=== PATIENT | male | born 1945 | race Caucasian/White ===

== ENCOUNTER 2019-03-14 15:23 | Emergency (ER) | payer OTHER ==
--- NOTE | 2019-03-14 16:02 | EDPHY ---
H & P Time Seen by Provider: 03/14/19 15:52 HPI/ROS: CHIEF COMPLAINT: Leg swelling, scrotal swelling HISTORY OF PRESENT ILLNESS: Patient is a 73-year-old male with no past medical history the presents emergency department with multiple complaints. Patient states that 10-14 days ago his leg started to swell bilaterally. They are symmetric. They are becoming more tense. A few days ago his scrotum began to swell. It is non painful. It is not tender to touch. He has had no fevers or chills. The patient has had an ongoing nonproductive cough. He feels mildly short of breath. He denies any PND or orthopnea. REVIEW OF SYSTEMS: 10 systems were reveiwed and are negative with the exception of the elements mentioned in the history of present illness. Past Medical/Surgical History: Denies Past surgical history: Noncontributory Social history: The patient smokes. 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 Smoking Status: Current every day smoker Physical Exam: Vitals noted GENERAL: Well-appearing, in no acute distress, alert. HEENT: Eyes normal to inspection, normal pharynx, no signs of dehydration. NECK: Normal, supple. RESPIRATORY: Clear to auscultation bilaterally, no rales, rhonchi or wheezing. CVS: Regular rate and rhythm, no rubs, murmurs, or gallops. ABDOMEN: Soft, nontender, nondistended, no organomegaly. BACK: Normal to inspection, no CVA tenderness. : Scrotal swelling. No erythema or warmth. No tenderness to palpation. SKIN: Normal color, no rash, warm, dry. No pallor. EXTREMITIES: Bilateral +2 pedal edema, no calf tenderness, no Homans sign or cords, no joint swelling. NEURO/PSYCH: Alert and oriented, normal mood and affect, normal motor sensory exam. Constitutional: Initial Vital Signs Temperature (C) 36.7 C 03/14/19 15:27 Heart Rate 97 03/14/19 15:27 Respiratory Rate 16 03/14/19 15:27 Blood Pressure 126/88 H 03/14/19 15:27 O2 Sat (%) 92 03/14/19 15:27 O2 Delivery Mode Room Air Allergies/Adverse Reactions: No Known Allergies Allergy (Unverified 03/14/19 15:27) Home Medications: Medication Instructions Recorded NK [No Known Home Meds] 03/14/19 Medical Decision Making - Diagnostics Imaging Results: Imaging Impressions Chest X-Ray 03/14/19 15:58 Impression: Acute early CHF. ED Course/Re-evaluation: In the emergency department I discussed possible etiologies with the patient. I answered all his questions. IV was placed. Laboratory studies were obtained. Chest x-ray and EKG EKG: Sinus rhythm at 86. Incomplete left bundle branch block. Prolonged QT. Troponin is 0.05. CBC and chemistry [place] [address]. On recheck the patient was stable. He was sitting in a chair in the room. He had no signs of respiratory distress. I discussed the results with the patient. I answered all his questions. I recommended admission for further evaluation. I discussed my concerns and risks to the patient. The patient had capacity to understand my instructions. He want to be discharged. He was adamant that he wanted to be discharged because he is take care of his . I offered options to help arrange care for his but he still wanted discharge. I believe he is capable of making this decision. I discussed case with Dr. Vito Ovalle to arrange close follow-up tomorrow. Patient was given warnings prior to leaving. He will return with worsening symptoms. Differential Diagnosis: My differential includes but is not limited to CHF, ascites, liver failure, electrolyte abnormality, sugar abnormality - Data Points Laboratory Results: Laboratory Results 03/14/19 15:55 03/14/19 15:55 03/14/19 03/14/19 03/14/19 16:09 15:55 15:55 WBC RBC Hgb Hct MCV MCH MCHC RDW Plt Count MPV Neut % (Auto) Lymph % (Auto) [place] % (Auto) Eos % (Auto) Baso % (Auto) Nucleat RBC Rel Count Absolute Neuts (auto) Absolute Lymphs (auto) Absolute Monos (auto) Absolute Eos (auto) Absolute Basos (auto) Absolute Nucleated RBC Immature Gran % Immature Gran # PT 13.9 SEC SEC (12.0-15.0) INR 1.11 (0.83-1.16) APTT 31.0 SEC SEC (23.0-38.0) Sodium 139 mEq/L mEq/L (135-145) Potassium 4.5 mEq/L mEq/L (3.5-5.2) Chloride 109 mEq/L mEq/L (97-110) Carbon Dioxide 21 mEq/l L mEq/l (22-31) Anion Gap 9 mEq/L mEq/L (6-14) BUN 23 mg/dL mg/dL (7-23) Creatinine 1.0 mg/dL mg/dL (0.7-1.3) Estimated GFR > 60 Glucose 89 mg/dL mg/dL (70-100) Calcium 9.4 mg/dL mg/dL (8.5-10.4) Total Bilirubin 1.4 mg/dL mg/dL (0.1-1.4) Conjugated Bilirubin 0.6 mg/dL H mg/dL (0.0-0.5) Unconjugated Bilirubin 0.8 mg/dL mg/dL (0.0-1.1) AST 27 IU/L IU/L (17-59) ALT 40 IU/L IU/L (21-72) Alkaline Phosphatase 133 IU/L H IU/L (38-126) POC Troponin I 0.05 ng/mL ng/mL (0.00-0.08) NT-Pro-B Natriuret Pep 28365 pg/mL H pg/mL (0-125) Total Protein 6.7 g/dL g/dL (6.3-8.2) Albumin 3.9 g/dL g/dL (3.5-5.0) Lipase 170 IU/L IU/L (23-300) 03/14/19 15:55 WBC 5.93 10^3/uL 10^3/uL (3.80-9.50) RBC 5.45 10^6/uL 10^6/uL (4.40-6.38) Hgb 16.1 g/dL g/dL (13.7-17.5) Hct 48.5 % % (40.0-51.0) MCV 89.0 fL fL (81.5-99.8) MCH 29.5 pg pg (27.9-34.1) MCHC 33.2 g/dL g/dL (32.4-36.7) RDW 17.9 % H % (11.5-15.2) Plt Count 182 10^3/uL 10^3/uL (150-400) MPV 10.9 fL fL (8.7-11.7) Neut % (Auto) 54.9 % % (39.3-74.2) Lymph % (Auto) 29.2 % % (15.0-45.0) [place] % (Auto) 11.6 % % (4.5-13.0) Eos % (Auto) 3.0 % % (0.6-7.6) Baso % (Auto) 1.0 % % (0.3-1.7) Nucleat RBC Rel Count 0.0 % % (0.0-0.2) Absolute Neuts (auto) 3.25 10^3/uL 10^3/uL (1.70-6.50) Absolute Lymphs (auto) 1.73 10^3/uL 10^3/uL (1.00-3.00) Absolute Monos (auto) 0.69 10^3/uL 10^3/uL (0.30-0.80) Absolute Eos (auto) 0.18 10^3/uL 10^3/uL (0.03-0.40) Absolute Basos (auto) 0.06 10^3/uL 10^3/uL (0.02-0.10) Absolute Nucleated RBC 0.00 10^3/uL 10^3/uL (0-0.01) Immature Gran % 0.3 % % (0.0-1.1) Immature Gran # 0.02 10^3/uL 10^3/uL (0.00-0.10) PT INR APTT Sodium Potassium Chloride Carbon Dioxide Anion Gap BUN Creatinine Estimated GFR Glucose Calcium Total Bilirubin Conjugated Bilirubin Unconjugated Bilirubin AST ALT Alkaline Phosphatase POC Troponin I NT-Pro-B Natriuret Pep Total Protein Albumin Lipase Point of Care Test Results: Chemistry 03/14/19 16:09 POC Troponin I 0.05 ng/mL ng/mL (0.00-0.08) Departure - Departure Disposition: Home, Routine, Self-Care Clinical Impression: Edema Qualifiers: Edema type: unspecified Qualified Code(s): R60.9 - Edema, unspecified Condition: Good
[2019-03-14 16:06] LABS: PLATELET COUNT 182 10^3/uL (150-400)
[2019-03-14 16:20] LABS: INR 1.11 (0.83-1.16); PROTIME(PATIENT) 13.9 SEC (12.0-15.0)
[2019-03-14] MEDS ORDERED: FUROSEMIDE 20 MG/2 ML VIAL IVP ONE (16:53)
[2019-03-14 17:27] VITALS: BP 128/75
--- NOTE | 2019-03-14 23:12 | CPEKG ---
Test Reason : OPEN Blood Pressure : / mmHG Vent. Rate : 086 BPM Atrial Rate : 086 BPM P-R Int : 183 ms QRS Dur : 107 ms QT Int : 412 ms P-R-T Axes : 068 -48 104 degrees QTc Int : 493 ms Sinus rhythm Multiple ventricular premature complexes Left atrial enlargement Incomplete left bundle branch block Borderline prolonged QT interval Confirmed by Charmaine Rizo ([id number]) on 03/14/2019 11:12:25 PM Referred By: Charmaine Rizo Confirmed By:Charmaine Rizo
== END 2019-03-14 17:35 | disposition home or self-care (01) ==
LOC: UNDOADMOB 16:52
DX: I50.9 Heart failure, unspecified (principal); R60.9 Edema, unspecified; F17.200 Nicotine dependence, unspecified, uncomplicated
CPT/HCPCS: 71046; 93005; 96374; 99285; J1940; 84484-ER

== ENCOUNTER → 2019-03-16 | Outpatient (CLI) | payer OTHER | LOC: BHFA 08:30 | PROVIDERS: ATTEND Internal Medicine Interventional Cardiology | DX: R06.02 Shortness of breath (principal); R60.9 Edema, unspecified ==

== ENCOUNTER 2019-03-17 06:13 | Day surgery (SDC) | payer OTHER ==
[2019-03-17] MEDS ORDERED: ASPIRIN EC 325 MG TAB PO ONE ×2 (06:18→06:41)
[2019-03-17] MEDS ORDERED: FAMOTIDINE 20 MG TAB PO ONE (06:18)
[2019-03-17] MEDS ORDERED: NS 1,000 ML IV ONE (06:18)
[2019-03-17] MEDS ORDERED: DIAZEPAM 5 MG TAB PO ONE (06:18)
[2019-03-17] MEDS ORDERED: diphenhydrAMINE 25 MG CAP PO ONE ×2 (06:18→06:40)
[2019-03-17] MEDS ORDERED: FAMOTIDINE 20 MG TAB ONE (06:40)
[2019-03-17] MEDS ORDERED: DIAZEPAM 5 MG TAB ONE (06:41)
[2019-03-17 07:00] LABS: PLATELET COUNT 175 10^3/uL (150-400)
[2019-03-17] MEDS ORDERED: LIDOCAINE 1% 300 MG/30 ML SDV ONE (07:06)
[2019-03-17 07:07] LABS: INR 1.08 (0.83-1.16); PROTIME(PATIENT) 13.6 SEC (12.0-15.0)
[2019-03-17] MEDS ORDERED: fentaNYL 100 MCG/2 ML INJ ONE (07:07)
[2019-03-17] MEDS ORDERED: IOPAMIDOL (ISOVUE-370) 150 ML BTL IV ONE (07:07)
[2019-03-17] MEDS ORDERED: MIDAZOLAM 2 MG/2 ML VIAL ONE ×2 (07:07)
--- NOTE | 2019-03-17 07:25 | PDPROPOC ---
Sedation Plan of Care Sedation Plan of Care: mental status noted, patient educated of risks, benefits , alternatives, patient can tolerate sedation ASA Classification: ASA 2 Planned drugs: fentanyl, midazolam Mallampati Score: Class 2 Mallampati Reference Image: Patient passed 3-3-2 rule?: Yes
--- NOTE | 2019-03-17 07:25 | PDHPUP ---
History & Physical Update H&P update statement: This history and physical update is based on an assessment of the patient which was completed after admission or registration (within 24 hours), but prior to the surgery/procedure. H&P update: H&P reviewed & patient examined, no change in patient's condition since H&P completed
[2019-03-17] MEDS ORDERED: ATROPINE SULFATE 1 MG/10 ML SYR IVP PRN (08:07)
[2019-03-17] MEDS ORDERED: OXYCODONE/APAP 5/325 TAB PO PRN (08:07)
[2019-03-17] MEDS ORDERED: HYDROCODONE/APAP 5/325 TAB PO PRN (08:07)
[2019-03-17] MEDS ORDERED: ONDANSETRON 4 MG/2 ML VIAL IVP PRN (08:07)
[2019-03-17] MEDS ORDERED: NITROGLYCERIN 0.4 MG BTL SL PRN (08:07)
--- NOTE | 2019-03-17 08:42 | CPEKG ---
Test Reason : OPEN Blood Pressure : / mmHG Vent. Rate : 096 BPM Atrial Rate : 095 BPM P-R Int : 167 ms QRS Dur : 117 ms QT Int : 390 ms P-R-T Axes : 073 -58 111 degrees QTc Int : 493 ms Sinus rhythm Multiple ventricular premature complexes Probable left atrial enlargement Incomplete left bundle branch block LVH with secondary repolarization abnormality Confirmed by Ally Durham ([id number]) on 03/17/2019 8:42:30 AM Referred By: Cristobal Menon Confirmed By:Ally Durham
--- NOTE | 2019-03-17 09:40 | PDCONSULT ---
Laundry Aide Note: Laundry Aide Note: INDICATION FOR CTS CONSULTATION: ischemic heart disease, valvular heart disease REQUESTING PHYSICIAN FOR CONSULTATION: Dr. Menon HISTORY OF PRESENT ILLNESS: This is a pleasant 73M who presented to the [facility] ED on 03/14/19 with bilateral symmetric LE edema for 10-14 days and scrotal swelling. A few days ago his scrotum began to swell. It is non painful. It is not tender to touch. He has had no fevers or chills. The patient has had an ongoing nonproductive cough. He feels mildly short of breath. He denies any PND or orthopnea. BNP was 94360. 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 TTE done confirmed heart failure with a severely dilated LV, EF 20%, mod MR, and severe TR. LHC today demonstrates severe 3-vessel CAD. No chest surgery. Prior to ED visit, he hasn't seen a PCP in at least a decade. No chest pain, palpitations, or history of afib. 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 PHYSICAL EXAMINATION: GENERAL APPEARANCE: NAD, in bed HEENT: NCAT, MMM, quarter-sized facial lesion, trachea midline, golfball mass on left face just inferior to earlobe RESPIRATORY: wheezes b/l, no rhonchi CARDIAC: s1s2, RRR, systolic murmur, 2+ edema b/l with discoloration ABDOMEN: soft, nontender SKIN: warm and dry NEURO: no gross defect, sensation intact PSYCH: answers questions appropriately, thoughts linear LABORATORY STUDIES: CBC, CMP, PT/INR reviewed in [facility] and unremarkable except recent BNP DIAGNOSTICS: RHC/LHC 4/18 - final results pending, prelim report w severe 3-vessel CAD; moderate pHTN TTE 03/16 - LV severely dilated, EF 20%, severe LAE severe TR, moderate MR, RVSP 48 CXR 03/14 - findings c/w acute CHF EKG 03/17 - SR, VPC, LAE, incomplete LBBB, LVH, QTc 493 CUS - yet to be ordered ASSESSMENT: Severe tricuspid valve regurgitation Moderate mitral valve regurgitation Severe 3-vessel coronary artery disease Severely depressed LVEF 20% Acute on chronic systolic/diastolic heart failure Moderate pHTN Tobacco use disorder Left face/neck mass of unknown significance Right face lesion, melanoma per patient PLAN: Dr. Almonte to evaluate patient with recommendations to follow.
--- NOTE | 2019-03-17 11:43 | CPIP ---
[f rep st] INVASIVE CARDIAC PROCEDURE DATE OF PROCEDURE: 03/17/2019 INDICATION FOR PROCEDURE: Heart failure. PROCEDURE: 1. Nonselective right groin sheathogram. 2. 7-Tongan sheath in right common femoral vein. 3. Bilateral coronary angiography. 4. Left heart catheterization. 5. Left ventriculogram. 6. Right heart catheterization using a Elbe-Constanza catheter. HISTORY: Briefly, this is a 73-year-old male with recent onset of worsening lower extremity edema, s hortness of breath. The patient had an echocardiogram as an outpatient, which showed severely reduce d global LV dysfunction. Given these findings, the patient was consented for right and left heart ca theterization. DESCRIPTION OF PROCEDURE: After informed consent, the patient was brought to [facility] where the right sharlene in was prepped and draped in sterile fashion. Using lidocaine, a short 6-Tongan sheath in the right c ommon femoral artery verified angiographically. 7-Tongan sheath in the right common femoral vein. Elbe-Constanza catheter was advanced. The wedge pressure was a mean of 35, A-wave 31, and V-wave 43. PA pressure was systolic 60, diastolic 25. RV pressure 62, diastolic 7, end of 18. RA pressure mean of 15, A-wave 19, V-wave 17. Cardiac output 6.0 with an index of 2.6. AO sat 88%. PA sat 68%. The S wan-Constanza catheter was removed. A JL4 catheter was advanced to the left coronary artery. Images of the left coronary artery revealed 20% in the mid left main. The left circumflex artery appeared to be a codominant, if not left domin ant circulation with a 20% proximal lesion. There was significant 80% disease in the distal left cir cumflex artery going into what appeared to be LPDA, with significant disease proximally __ distally. The LAD had 80% lesion proximally and a 67% disease in the midportion; however, t he distal vessel appeared to be widely patent. At the apical LAD, there was another area of approxim ately 50% disease. There was a diagonal artery with approximately 70% disease proximal. After these images were obtained, the JL4 catheter was removed. A JR4 catheter advanced to the right coronary artery. Images of the right coronary artery revealed what appeared to be a potential codominant circulation with an RPDA, which had diffuse 70% to 80% dis ease proximally. There was a marginal branch as well that had 70% to 80% disease proximally. After these images, a still frame cine was obtained of the abdomen, which appeared to show the calciu m shell of a large abdominal aortic aneurysm. The pigtail catheter was advanced to left ventricle. EDP is 24 mmHg. Left ventriculogram in the FOX projection showed an EF of approximately 20% with severe global LV hypokinesis. There was no pull-b ack gradient between the LV and aorta. The pigtail catheter was removed over a 0.035 wire. Right gr oin was closed with manual pressure. Patient tolerated the procedure well with no complications. IMPRESSION: 1. Severe triple-vessel coronary artery disease. 2. Severely reduced ejection fraction. 3. Moderately severe pulmonary hypertension. PLAN: I have already discussed the case with Dr. Almonte. Patient clearly needs to have a surgical ev aluation given his reduced EF, triple-vessel coronary artery disease, and elevated pulmonary pressure s. Patient does have social issues ongoing with taking care of his sick . We will try to arrang e either admission today or surgery as soon as possible given his current situation. /[id number]/MODL
== END 2019-03-17 14:17 | disposition home or self-care (01) ==
LOC: FCATH 06:13
PROVIDERS: ATTEND Internal Medicine Cardiovascular Disease
PROC: 4A023N8 Measurement of Cardiac Sampling and Pressure, Bilateral, Percutaneous Approach (ICD-10-PCS; principal; 2019-03-17)
PROC: B2111ZZ Fluoroscopy of Multiple Coronary Arteries using Low Osmolar Contrast (ICD-10-PCS; principal; 2019-03-17)
PROC: B2151ZZ Fluoroscopy of Left Heart using Low Osmolar Contrast (ICD-10-PCS; principal; 2019-03-17)
DX: I50.33 Acute on chronic diastolic (congestive) heart failure (principal); I34.0 Nonrheumatic mitral (valve) insufficiency; I36.1 Nonrheumatic tricuspid (valve) insufficiency; I25.10 Atherosclerotic heart disease of native coronary artery without angina pectoris; I27.20 Pulmonary hypertension, unspecified; F17.210 Nicotine dependence, cigarettes, uncomplicated; D03.39 Melanoma in situ of other parts of face
CPT/HCPCS: J1644; J2250; J3010; Q9967

== ENCOUNTER → 2019-03-21 | Outpatient (CLI) | payer OTHER ==
[~2019-03-21] MED LIST: IOPAMIDOL (ISOVUE 370) 100 ML BTL IV ONE
== END ==
LOC: CIMAGING 17:46
PROVIDERS: ATTEND Internal Medicine Cardiovascular Disease
DX: I71.4 Abdominal aortic aneurysm, without rupture (principal); J90 Pleural effusion, not elsewhere classified; I51.7 Cardiomegaly; N28.1 Cyst of kidney, acquired; I70.8 Atherosclerosis of other arteries; R18.8 Other ascites; K80.20 Calculus of gallbladder without cholecystitis without obstruction
CPT/HCPCS: 74174; Q9967

== ENCOUNTER 2019-03-31 06:09 | Inpatient (IN) | payer OTHER ==
[2019-03-31] MEDS ORDERED: ASPIRIN EC 325 MG TAB PO ONE (06:18)
[2019-03-31] MEDS ORDERED: NS 1,000 ML IV ONE (06:18)
[2019-03-31] MEDS ORDERED: diphenhydrAMINE 25 MG CAP PO ONE (06:18)
[2019-03-31] MEDS ORDERED: DIAZEPAM 5 MG TAB PO ONE (06:18)
[2019-03-31] MEDS ORDERED: FAMOTIDINE 20 MG TAB PO ONE (06:18)
[2019-03-31] MEDS ORDERED: CLOPIDOGREL BISULFATE 75 MG TAB ONE (06:26)
[2019-03-31] MEDS ORDERED: CLOPIDOGREL BISULFATE 75 MG TAB PO ONE (06:30)
[2019-03-31 07:04] LABS: INR 1.08 (0.83-1.16); PROTIME(PATIENT) 13.6 SEC (12.0-15.0)
[2019-03-31] MEDS ORDERED: MIDAZOLAM 2 MG/2 ML VIAL ONE ×2 (07:10→08:34)
[2019-03-31] MEDS ORDERED: LIDOCAINE 1% 300 MG/30 ML SDV ONE (07:10)
[2019-03-31] MEDS ORDERED: fentaNYL 100 MCG/2 ML INJ ONE ×2 (07:10→08:34)
[2019-03-31] MEDS ORDERED: IOPAMIDOL (ISOVUE-370) 150 ML BTL IV ONE ×2 (07:10→09:30)
[2019-03-31] MEDS ORDERED: BIVALIRUDIN 250 MG/5 ML VIAL IV ONE ×2 (07:12→08:34)
[2019-03-31] MEDS ORDERED: EPINEPHrine 1 MG/10 ML SYR IVP ONE (07:12)
[2019-03-31] MEDS ORDERED: ATROPINE SULFATE 1 MG/10 ML SYR ONE (07:12)
[2019-03-31 08:19] LABS: PLATELET COUNT 207 10^3/uL (150-400)
[2019-03-31] MEDS ORDERED: NITROGLYCERIN 1,500 MCG/15 ML VIAL MISC ONE (09:23)
[2019-03-31] MEDS ORDERED: methylPREDNISolone SOD SUCC 125 MG/2 ML VIAL ONE (09:55)
[2019-03-31] MEDS ORDERED: FAMOTIDINE 20 MG/NACL/50 ML BAG IV ONE (09:57)
[2019-03-31] MEDS ORDERED: FUROSEMIDE 40 MG/4 ML VIAL ONE (10:31)
[2019-03-31] MEDS ORDERED: OXYCODONE/APAP 5/325 TAB PO PRN (10:42)
[2019-03-31] MEDS ORDERED: ONDANSETRON 4 MG/2 ML VIAL IVP PRN (10:42)
[2019-03-31] MEDS ORDERED: HYDROCODONE/APAP 5/325 TAB PO PRN (10:42)
[2019-03-31] MEDS ORDERED: LORazepam 2 MG/ML INJ IVP PRN (10:42)
[2019-03-31] MEDS ORDERED: TEMAZEPAM 15 MG CAP PO PRN (10:42)
[2019-03-31] MEDS ORDERED: ATROPINE SULFATE 1 MG/10 ML SYR IVP PRN (10:42)
[2019-03-31] MEDS ORDERED: NITROGLYCERIN 0.4 MG BTL SL PRN (10:42)
--- NOTE | 2019-03-31 11:50 | CPIP ---
[f rep st] INVASIVE CARDIAC PROCEDURE DATE OF PROCEDURE: 03/31/2019 INDICATION FOR PROCEDURE: Severe triple-vessel disease, reduced heart failure, ischemic cardiomyopat hy. PROCEDURE: 1. Nonselective right groin sheathogram. 2. Nonselective left groin sheathogram. 3. Upsizing the left common femoral artery to 14-Omani sheath after bilateral Perclose placements. 4. Upsizing of 6-Omani sheath right femoral artery, 8-Omani 45 cm sheath. 5. Left coronary artery angiography. 6. Percutaneous coronary intervention of mid and distal left anterior descending utilizing Synergy d rug-eluting stents. 7. Percutaneous coronary intervention of a high diagonal 1 artery utilizing Synergy drug-eluting kenn nt. 8. Percutaneous coronary intervention of left dominant left posterior descending artery with Synergy drug-eluting stents. 9. Percutaneous transluminal coronary angioplasty of LPLS. HISTORY: This is a 74-year-old male with history of severe triple-vessel coronary artery disease wit h EF of 20%, with also known abdominal aortic aneurysm of over 7.5 cm. The patient was seen by Dr. Ilana echeverria and deemed to be extreme high risk for open CABG. Given the patient's need for his AAA repair, we have discussed with the patient about high-risk PCI with Impella support. The patient was consent ed for this procedure. PROCEDURE: After informed consent, the patient was brought to [facility] where the mian ateral groins were prepped and draped in sterile fashion. Using local lidocaine, a short 6-Omani sh eath in the right common femoral artery verified angiographically. A 6-Omani sheath in the left fem oral artery verified angiographically. A 6-Omani sheath in the left common femoral artery was upsiz ed to a 14-Omani sheath after bilateral Percloses at 10 and 2 o'clock were placed. Right common fem oral artery was upsized to 8-Omani sheath with a 45 cm sheath. The patient was started on Angiomax bolus and drip, administered 600 mg Plavix p.o. before the case. An Impella device was then placed i nto the left ventricle via standard protocol. Impella device was then turned on and good cardiac out put was noted at 3.6 to 4.0. At this time, an EBU 3.5 guide catheter was advanced to the left coronary artery. Images of the left coronary artery revealed normal left main. There was a high diagonal artery coming off with a 90% o stial lesion. There was a 70% to 80% proximal mid LAD lesion after the takeoff of the diagonal arter y, followed by another tubular lesion in the mid distal LAD of 70%. There was a distal lesion in the extreme apical portion of the LAD; however, there was a smaller vessel at this point. The circumfle x was a left dominant circulation, which showed high-grade 80% disease in its LPDA and LPLS ostium an d proximal portion. At this time, a Choice PT wire was placed down the LAD. We commenced with initial predilatation with multiple [employer] balloons starting from 2.0 x 12, upsizing to 2.5 to 3.0, all 12 to 15 mm across these lesions given heavily calcified nature of these areas. We then proceeded with stenting of the mid distal lesion first with a 3.0 x 20 mm stent. This was deployed at 12 atmospheres. After deployment, angiographic images were obtained, which showed improved patency of this area. We then proceeded to stent the proximal lesion with a 3.0 x 16 Synergy drug-eluting stent, showed excellent p atency. We then post-dilated the proximal LAD stent with a 3.25 x 12 mm Noncompliant balloon at 18 a tmospheres. After this was performed, angiographic images were obtained, which revealed excellent pa tency of the LAD. We did wire the high diagonal artery, pre-dilatation of this vessel with a 1.5 x 12 balloon, followed by 2.0 x 12 balloon. We then stented this area with a 2.25 x 12 mm stent at 11 atmospheres. After this was performed, angiogram images were obtained, which showed excellent GATITO-3 flow through both t he diagonal artery and LAD. We then placed the wires down the LPLS and LPDA. Predilatation of the LPDA commenced with a long 2.5 x 30 mm balloon and this was inflated to 12 atmospheres. After this was performed, we then placed a balloon in the LPLS with a 2.0 x 20 balloon and this was inflated to 10 atmospheres. After this was performed, angiogram images were obtained, which showed improved patency of the flow into both vesse ls; however, there was still significant disease in the LPDA. We then proceeded to proceed with sten ting of the LPDA with crossing over of the LPLSwith a 2.25 x 38 mm Synergy drug-eluting stent, which was deployed at 14 atmospheres. After deployment, angiogram images was obtained, which showed much i mproved patency of the stented area with no evidence of dissection or perforation. Of note, there wa s some ostial pinching of the LPLS, however, there was still GATITO-3 flow through the vessel. We deci ded at this point, no further intervention would be warranted. The wire was pulled back. The guide catheter was removed. The left groin was closed with bilateral Percloses. The right groin was close d with the 8-Omani Angio-Seal. Patient tolerated the procedure well with no complications. IMPRESSION: Successful high-risk percutaneous coronary intervention with Impella support for triple- vessel coronary artery disease, namely stenting of the diagonal artery, stenting of 2 stents in the l eft anterior descending, 1 stent in the left posterior descending artery, and percutaneous translumin al coronary angioplasty of the LPLS. PLAN: The patient will have 3 hours bedrest, admitted to PCU. If clinically stable, will be dischar ge in 24 hours in anticipation of this AAA endovascular repair within the next 1 to 2 weeks. /[id number]/MODL
[2019-03-31] MEDS: FUROSEMIDE 40 MG TAB PO SCH (16:21)
[2019-03-31] MEDS: CARVEDILOL 3.125 MG TAB PO SCH (18:21)
--- NOTE | 2019-03-31 18:32 | PDMN ---
Medical Necessity Medical necessity: Pt meets IP criteria per MD & JUAN M-52; est los >2 mn s/p high-risk PCI w/Impella support; admit for further monitoring & bedrest; comorbid advanced age, severe triple-vessel CAD with EF of 20% & AAA; per procedure note & order 03/31/19
--- NOTE | 2019-03-31 19:58 | WOCRNPDOC ---
WOCRN Advanced Assessment Note - Skin Integrity Problem, Advanced Assess Right Cheek Dressing Type: Allevyn Life Exudate Amount: Scant Exudate Characteristic(s): Serosanguinous Integumentary Issue Intervention: Dressing Changed Erika Wound Tissue: Erythema, Scarred Wound Bed Constitution: Granulation Tissue (50% ), Adhered Slough (thin layer 50 %) Wound Edges: Attached Site Measurement - Head-to-Toe Length X Width X Depth (cm): 1x1.7x0.2 Skin Integrity Problem Comment: Old site that patient reports was a skin cancer removal site in the distant past. He also mentioned that he was using a topical liver spot reduction cream that "burnt" the area several years ago and it has been chronic. Query that it may need to be biopsied further if in fact this wound is several years old. Advised patient follow up at outpatient [facility]. Cleaned wound with ns and gauze. Filled wound bed with doron Ag+ and covered with Hydrofera blue ready then secured with tegaderm. All questions answered and patient educated about plan of care and wound care supplies. Thank you for your consultation. Wound care will follow. Ana Maria COSBY visualized wound.
[2019-03-31] MEDS: POTASSIUM CL 10 MEQ TAB PO SCH (20:10)
[2019-04-01 03:50] LABS: PLATELET COUNT 191 10^3/uL (150-400)
--- NOTE | 2019-04-01 07:02 | PDCARPN ---
Cardiology Progress Note Chief Complaint: SOB Assessment/Plan: Assessment: s/p multi-vessel PCI with Impella support Plan: 04/01/19 07:01 doing well OOB d/c home today f/u next week Subjective: doing well Reviewed/Discussed With: multidisciplinary team Time Spent with Patient: greater than 25 minutes Time Spent with Patient: Greater than 25 minutes spent on this patients care, greater than 50% of time spent counseling, educating, and coordinating care regarding the above mentioned plan. Objective: Vital Signs (8 Hrs) Temp Pulse Resp BP Pulse Ox 04/01/19 03:29 36.7 C 72 17 104/59 L 93 03/31/19 23:29 36.8 C 85 16 111/70 93 03/31/19 23:20 83 L Intake/Output (24 Hrs) 03/31/19 04/01/19 04/02/19 05:59 05:59 05:59 Intake Total 300 Output Total 2350 Balance -2049 Intake: Oral (ml) 300 Output: Urine (ml) 2350 Catheter 1600 Urinal 750 Other: Weight 100.698 kg Output Comment Urinal noncompliant with I&O, 4 voids previous to this one Number of Stools Urinal 1 Result Diagrams: 04/01/19 03:28 04/01/19 03:28 - Physical Exam Constitutional: no apparent distress Eyes: PERRL Ears, Nose, Mouth, Throat: moist mucous membranes Cardiovascular: regular rate and rhythm Peripheral Pulses: 1+: femoral (R), femoral (L) Respiratory: clear to auscultate bilat Gastrointestinal: normoactive bowel sounds Genitourinary: no suprapubic tenderness Skin: no rashes Musculoskeletal: no muscular tenderness Neurologic: AAOx3 Psychiatric: cooperative ICD10 Worksheet Patient Problems: Problems Problem Status Onset Edema Acute
--- NOTE | 2019-04-01 07:28 | GDS ---
[f rep st] DISCHARGE SUMMARY DISCHARGE DIAGNOSIS: Coronary artery disease. HOSPITAL COURSE: Briefly, this is a 74-year-old male with a history of severe ischemic cardiomyopath y, EF of 20%, triple-vessel coronary artery disease, and abdominal aortic aneurysm of 7.5 cm. The wilfredo bledsoe was seen by CT surgery and deemed to be a very high-risk candidate for open CABG. I have discu ssed this case with Dr. Jason Townsend from [facility], who felt that the patient's coronaries s hould be addressed prior to any endovascular repair of his abdominal aortic aneurysm. Given these fi ndings, the patient underwent successful high risk triple-vessel PCI with Impella support. The patie nt did very well post procedure, has been ambulating the halls without problems. Laboratory values a re within the patient's normal limits this morning. The patient will be discharged home this morning with his home medications, including baby aspirin and Plavix. He will follow up with the office in 1 week's time. The patient is already on heart failure regimen of carvedilol and lisinopril. He devaughn l follow up in the office and will discuss to titrating his medications as an outpatient. /[id number]/MODL
[2019-04-01 07:36] VITALS: BP 107/70
[2019-04-01] MEDS ORDERED: LISINOPRIL 2.5 MG TAB PO SCH (09:00)
[2019-04-01] MEDS ORDERED: ASPIRIN 81 MG CHEWABLE TAB PO SCH (09:00)
[2019-04-01] MEDS ORDERED: CLOPIDOGREL BISULFATE 75 MG TAB PO SCH (09:00)
[2019-04-01] MEDS: CARVEDILOL 3.125 MG TAB PO SCH (09:05)
[2019-04-01] MEDS: FUROSEMIDE 40 MG TAB PO SCH (09:06)
[2019-04-01] MEDS: POTASSIUM CL 10 MEQ TAB PO SCH (09:06)
[2019-04-01] MEDS ORDERED: ROSUVASTATIN CALCIUM 10 MG TAB PO SCH (09:45)
--- NOTE | 2019-04-01 10:12 | ASMTLACE ---
LACE Length of stay for Answers: Less than 1 day current admission Acuity / Level of Answers: Yes Care: Did the patient have an inpatient admission? Comorbidities - select Answers: Coronary Artery Disease all that apply Other Notes: HTN # of Emergency department Answers: 1-2 visits in the last 6 months Score: 7 Date Signed: 04/01/2019 10:11 AM Electronically Signed By:Lakia Florentino RN
--- NOTE | 2019-04-01 10:15 | ASDISCHSUM ---
Discharge Information Plan Status:Home with No Needs Medically Cleared to Leave:04/01/2019 Discharge Date:04/01/2019 CM D/C Disposition:Home, Routine, Self-Care ADT D/C Disposition:Home, Routine, Self-Care Projected Discharge Date:04/01/2019 Transportation at D/C: Discharge Delay Reason: Follow-Up Date:04/01/2019 Discharge Slot: Final Diagnosis: Placement Information Patient Contact Information Contact Name:PAPITO Relationship:Daughter Address:[address] Work Phone: City[email or web address] [facility] Phone: State/Zip Code:[place] [address] Email: Financial Information Financial Class:Medicare Primary Plan Desc:MEDICARE INPATIENT Primary Plan Number:[id number] Secondary Plan Desc: Secondary Plan Number: Assessment Information LACE LACE Length of stay for Answers: Less than 1 day current admission Acuity / Level of Answers: Yes Care: Did the patient have an inpatient admission? Comorbidities - select Answers: Coronary Artery Disease all that apply Other Notes: HTN # of Emergency department Answers: 1-2 visits in the last 6 months Score: 7 Date Signed: 04/01/2019 10:11 AM Electronically Signed By:Lakia Florentino RN Intervention Information
--- NOTE | 2019-04-06 20:07 | CPEKG ---
Test Reason : OPEN Blood Pressure : / mmHG Vent. Rate : 091 BPM Atrial Rate : 091 BPM P-R Int : 176 ms QRS Dur : 120 ms QT Int : 398 ms P-R-T Axes : 077 -60 115 degrees QTc Int : 490 ms Sinus rhythm Ventricular premature complex LAE, consider biatrial enlargement Incomplete left bundle branch block LVH with secondary repolarization abnormality Unchanged in comparison to prior Confirmed by Ji Amador ([id number]) on 04/06/2019 8:06:44 PM Referred By: Cristobal Menon Confirmed By:Ji Amador
--- NOTE | 2019-04-06 20:20 | CPEKG ---
Test Reason : OPEN Blood Pressure : / mmHG Vent. Rate : 088 BPM Atrial Rate : 089 BPM P-R Int : 186 ms QRS Dur : 117 ms QT Int : 411 ms P-R-T Axes : 076 -63 110 degrees QTc Int : 498 ms Sinus rhythm LAE, consider biatrial enlargement Incomplete left bundle branch block LVH with secondary repolarization abnormality Confirmed by Ji Amador ([id number]) on 04/06/2019 8:19:12 PM Referred By: Cristobal Menon Confirmed By:Ji Amador
--- NOTE | 2019-04-06 20:30 | CPEKG ---
Test Reason : OPEN Blood Pressure : / mmHG Vent. Rate : 074 BPM Atrial Rate : 074 BPM P-R Int : 177 ms QRS Dur : 122 ms QT Int : 452 ms P-R-T Axes : 060 -52 117 degrees QTc Int : 502 ms Sinus rhythm Atrial premature complex LAE, consider biatrial enlargement Nonspecific IVCD with LAD LVH with secondary repolarization abnormality Confirmed by Ji Amador ([id number]) on 04/06/2019 8:30:13 PM Referred By: Cristobal Menon Confirmed By:Ji Amador
== END 2019-04-01 11:27 | disposition home or self-care (01) | DRG 215 ==
LOC: FCATH 06:09 → F2W 10:42
PROVIDERS: ADMIT Internal Medicine Cardiovascular Disease; ATTEND Internal Medicine Cardiovascular Disease
DX: I25.10 Atherosclerotic heart disease of native coronary artery without angina pectoris (principal); I71.4 Abdominal aortic aneurysm, without rupture; I25.5 Ischemic cardiomyopathy
CPT/HCPCS: C1725; C1760; C1769; C1874; C1887; C9600; C9601; J0461; J0583; J1200; J1644; J1940; J2060; J2250; J2930; J3010; Q9967

== ENCOUNTER → 2019-05-05 | Outpatient (CLI) | payer OTHER | LOC: FIMAGING 16:11 ==

== ENCOUNTER 2019-05-19 09:31 | Inpatient (IN) | payer OTHER | END 2019-05-21 13:51 | disposition home or self-care (01) | LOC: FIMAGING 09:31 → F2N 15:52 → F3E 05-20 16:50 ==